=== PATIENT | male | born 1980 | race Caucasian/White ===

== ENCOUNTER → 2021-05-03 10:31 | Outpatient (BNVA) | payer OTHER, SELFPAY | PROVIDERS: Visit Provider Nurse Practitioner Family | DX: Z02.89 Encounter for other administrative examinations (principal); R31.9 Hematuria, unspecified | CPT/HCPCS: 81000 ==

== ENCOUNTER → 2023-01-24 10:48 | Outpatient (BNVA) | payer OTHER, SELFPAY | PROVIDERS: PCP Nurse Practitioner; Visit Provider Nurse Practitioner | DX: R09.1 Pleurisy (principal) | CPT/HCPCS: 71046 ==